=== PATIENT | female | born 1970 | race Caucasian/White ===

== ENCOUNTER 2017-11-17 21:43 | Emergency (ER) | END 2017-11-18 00:47 | disposition home or self-care (01) ==

== ENCOUNTER 2018-07-18 16:55 | Emergency (ER) | payer MEDICAID, OTHER ==
[~2018-07-18] VITALS: Wt 71.0 kg
[~2018-07-18 16:55] MED LIST: CYCL10TA7 PO; NAPR-985 PO; PRED20TA PO; TRAM50TA2 PO
[2018-07-18] MEDS ORDERED: IBUPROFEN 600 MG TAB PO ONE (21:30)
--- NOTE | 2018-07-18 22:52 | ERD ---
ER Documentation Chief Complaint Chief Complaint VAGINAL BLEEDING X 2 MONTH HPI This is a 47-year-old female patient who presents to the emergency room with complaint of bleeding heavy today with clots. Patient states that she has been having dysfunctional uterine bleeding for more than 5 months and has received several shots by her PMD to control the bleeding. Dates the shots have not really worked. She has history of anemia. She came in today because she is having pelvic cramping and increased bleeding today. Denies any other symptoms, no shortness of breath, no weakness, no fevers, no weight loss, no malaise, no unusual bruising. Patient is alert, cooperative, skin pink, NAD. Denies any chronic medical conditions. History and physical exam and plan of care discussion performed via multiple effect evaporator operator services ROS All systems reviewed and are negative except as per history of present illness. Medications Home Meds Active Scripts Ibuprofen* (Motrin*) 600 Mg Tab, 600 MG PO Q6, #30 TAB Prov:MADELYN MCDONALD [employer]PER[employer] 07/18/18 Prednisone* (Prednisone*) 20 Mg Tab, 40 MG PO DAILY for 4 Days, TAB Prov:HORTENCIA GUTHRIE-C 11/18/17 Cyclobenzaprine Hcl* (Cyclobenzaprine Hcl*) 10 Mg Tablet, 10 MG PO QHS, #7 TAB Prov:HORTENCIA GUTHRIE-C 11/18/17 Naproxen* (Naprosyn*) 500 Mg Tablet, 500 MG PO BID PRN for PAIN AND/OR INFLAMMATION, #30 TAB Prov:HORTENCIA GUTHRIE-C 11/18/17 Tramadol HCl (Tramadol HCl) 50 Mg Tablet, 50 MG PO Q6 PRN for PAIN, #20 TAB Prov:HORTENCIA GUTHRIE-C 11/18/17 Allergies Allergies: Coded Allergies: No Known Allergy (Verified Allergy, Unknown, 04/09/07) PMhx/Soc Medical and Surgical Hx: pt denies Medical Hx, pt denies Surgical Hx Hx Alcohol Use: No Hx Substance Use: No Hx Tobacco Use: No Smoking Status: Never smoker Physical Exam Vitals Vital Signs Date Temp Pulse Resp B/P (MAP) Pulse Ox O2 O2 Flow FiO2 Time Delivery Rate 07/18/18 98.7 63 18 160/92 100 Room Air 23:58 (114) 07/18/18 98.0 78 18 158/95 99 16:59 (116) Physical Exam Const: No acute distress Head: Atraumatic Eyes: Normal Conjunctiva, PERRL ENT: Normal External Ears, Nose and Mouth. Pharynx pink, no lesions, no petechiae. Neck: Full range of motion. No meningismus. Resp: Clear to auscultation bilaterally Cardio: Regular rate and rhythm, no murmurs Abd: Soft, tender at RLQ/LLQ, non distended. Normal bowel sounds Skin: No petechiae or rashes Ext: No cyanosis, or edema Neur: Awake and alert Psych: Normal Mood and Affect Result Diagram: 07/18/18212507/18/182125 Results 24 hrs Laboratory Tests Test 07/18/18 21:26 07/18/18 21:28 White Blood Count 8.2 10^3/ul Red Blood Count 3.91 10^6/ul Hemoglobin 11.2 g/dl Hematocrit 35.4 % Mean Corpuscular Volume 90.5 fl Mean Corpuscular Hemoglobin 28.6 pg Mean Corpuscular Hemoglobin Concent 31.6 g/dl Red Cell Distribution Width 13.2 % Platelet Count 345 10^3/UL Mean Platelet Volume 9.1 fl Immature Granulocytes % 0.100 % Neutrophils % 51.9 % Lymphocytes % 37.4 % Monocytes % 7.8 % Eosinophils % 1.8 % Basophils % 1.0 % Nucleated Red Blood Cells % 0.0 /100WBC Immature Granulocytes # 0.010 10^3/ul Neutrophils # 4.3 10^3/ul Lymphocytes # 3.1 10^3/ul Monocytes # 0.6 10^3/ul Eosinophils # 0.2 10^3/ul Basophils # 0.1 10^3/ul Nucleated Red Blood Cells # 0.0 10^3/ul Sodium Level 144 mmol/L Potassium Level 4.2 mmol/L Chloride Level 108 mmol/L Carbon Dioxide Level 25 mmol/L Anion Gap 11 Blood Urea Nitrogen 12 mg/dl Creatinine 0.52 mg/dl Est Glomerular Filtrat Rate mL/min > 60 mL/min Glucose Level 89 mg/dl Calcium Level 9.5 mg/dl Total Bilirubin 0.3 mg/dl Direct Bilirubin 0.00 mg/dl Indirect Bilirubin 0.3 mg/dl Aspartate Amino Transf (AST/SGOT) 29 IU/L Alanine Aminotransferase (ALT/SGPT) 21 IU/L Alkaline Phosphatase 43 IU/L Total Protein 7.0 g/dl Albumin 4.4 g/dl Globulin 2.60 g/dl Albumin/Globulin Ratio 1.69 Beta HCG, Quantitative < 2.4 mIU/ml Urine Color YELLOW Urine Clarity SLIGHTLY CLOUDY Urine pH 6.0 Urine Specific [place] 1.021 Urine Ketones NEGATIVE mg/dL Urine Nitrite NEGATIVE mg/dL Urine Bilirubin NEGATIVE mg/dL Urine Urobilinogen NEGATIVE mg/dL Urine Leukocyte Esterase NEGATIVE Dariela/ul Urine Microscopic RBC > 182 /HPF Urine Microscopic WBC 2 /HPF Urine Mucus FEW /HPF Urine Hemoglobin 3+ mg/dL Urine Glucose NEGATIVE mg/dL Urine Total Protein NEGATIVE mg/dl Current Medications Medications Dose Sig/Richy Start Time Status Last (Trade) Ordered Route PRN Stop Time Admin Dose Reason Admin Ibuprofen 600 mg ONCE ONCE 07/18/18 DC 07/18/18 (Motrin) PO 21:30 22:14 07/18/18 21:31 Procedures/MDM This is a 47-year-old female patient who presents with dysfunctional uterine bleeding that has been going on for several months. She has been followed by her primary care doctor for the same and comes in today because she states she is having heavy bleeding today and has concern for anemia. ED COURSE: The patient was stable throughout ED course. I kept the patient informed of laboratory and diagnostic imaging results throughout the ED course. DIAGNOSTIC IMAGING: No intrauterine gestation. No adnexal abnormality. MEDICATIONS GIVEN: Ibuprofen Patient tolerated medication well with no adverse reactions. Patient reported improvement in pain. MDM: Patient remained stable throughout the ER course. She will discharged home with recommendations for 2-day recheck by primary care physician. She is to return sooner for fevers, hemorrhaging, new worsening symptoms. Current signs or symptoms do not suggest appendicitis, acute surgical abdomen, additional concerning signs or symptoms or conditions. The patient was stable with no new complaints during the ER course. Clinically, there is no current evidence to suggest meningitis, sepsis, acute abdomen, pneumonia, stroke, acute coronary syndrome, pulmonary embolism, aortic dissection or any other emergent condition appearing to require further evaluation or hospitalization. Patient counseled regarding my diagnostic impression and care plan. Prior to discharge all questions answered. Pt agrees with treatment plan and understands strict return precautions. Pt is instructed to follow up with primary care provider within 24- 48 hours. Precautionary instructions provided including instructions to return to the ER if not improving or for any worsening or changing symptoms or concerns. DISPOSITION: The patient has been discharge home to follow-up with community physician. Departure Diagnosis: Primary Impression: Dysfunctional uterine bleeding Condition: Stable Patient Instructions: Dysfunctional Uterine Bleeding Referrals: REAL ESTATE PROFESSOR REFERRAL LIST Additional Instructions: Thank you very much for allowing us to participate in your care. Your health and safety is our top priority at [facility]. Call your primary care doctor TOMORROW for an appointment during the next 2-4 days and bring all the information and medications prescribed. Have prescriptions filled and follow precisely the directions on the label. If the symptoms get worse and your provider is unavailable, return to the Emergency Department immediately. MADELYN MCDONALD NP Jul 18, 2018 22:52
[2018-07-18] MEDS ORDERED: IBUP-1542 PO (23:14)
[2018-07-18 23:58] VITALS: BP 160/92; PULSE 63; RESP 18
== END 2018-07-18 23:59 | disposition home or self-care (01) ==
LOC: FTE 16:55
DX: N93.8 Other specified abnormal uterine and vaginal bleeding (principal); R10.2 Pelvic and perineal pain; Z33.1 Pregnant state, incidental
CPT/HCPCS: 36415; 76801; 76817; 80053; 81001; 84702; 85025; 86850; 86900; 86901; Z7502; Z7610

== ENCOUNTER 2018-08-28 19:12 | Emergency (ER) | payer OTHER ==
[~2018-08-28] VITALS: Wt 65.5 kg
[~2018-08-28 19:12] MED LIST changes: +IBUP-1542 PO
--- NOTE | 2018-08-28 21:01 | ERD ---
ER Documentation Chief Complaint Chief Complaint heavy irregular vag bleeding hgb 9.4 08/26 HPI This is a 47-year-old female who presents here in the emergency department with complaints of vaginal bleeding that is on and off for about 5 months and got worse today. Stated that she changed 5 pads for the last 24 hours. Stated that she is being seen by overhead line worker and was diagnosed with uterine cysts and possibly causing the blood, with possible fibroids 2. Biopsy pending biopsies was done and pending for today. Also complains of suprapubic pain. Stated that she has been taking medroxyprogesterone for bleeding, for about 10 days. Stated that the bleeding has stopped but resumed after the 10-day course. LMP: Stated that her last normal menstrual period was last April. G2, . Denies headache, head injury, loss of consciousness, dizziness, neck pain, neck stiffness, throat pain, difficulty swallowing, difficulty breathing lying flat, shoulder pain, chest pain, back pain, abdominal pain, nausea, vomiting, constipation, diarrhea, urinary symptoms, or possibility being , loss of bowel and bladder control, trauma, injury, falls, difficulty walking due to pain, numbness or tingling sensation, calf pain, recent travel, recent major surgery in the last 3 weeks, calf pain, recent long travel, recent exposure to any illness, recent antibiotic use in the last 3 months, fever, chills, seizures. Past medical history: Hypertension. Anemia. Surgical history: Social: Denies smoking, use of alcoholic beverages, use of illegal drugs. ROS All systems reviewed and are negative except as per history of present illness. Medications Home Meds Active Scripts Norethindrone-Ethinyl Estradiol (Ortho-Novum ()) 0.035-1 Mg Tablet, 1 TAB PO DAILY for 30 Days, TAB Prov:PASILABAN,KLAR F 08/28/18 Ferrous Sulfate* (Ferrous Sulfate*) 325 Mg Tabec, 325 MG PO BID, #60 TAB Prov:PASILABAN,KLAR F 08/28/18 Tramadol HCl (Tramadol HCl) 50 Mg Tablet, 50 MG PO Q4 PRN for SEVERE PAIN LEVEL 7-10, #5 TAB Prov:PASILABAN,KLAR F 08/28/18 Omeprazole* (Omeprazole*) 40 Mg Capsule.dr, 40 MG PO DAILY, #30 CAP Prov:PASILABAN,KLAR F 08/28/18 Naproxen* (Naprosyn*) 500 Mg Tablet, 500 MG PO BID PRN for PAIN AND/OR INFLAMMATION, #30 TAB Prov:LEXI BIRD 08/28/18 Ibuprofen* (Motrin*) 600 Mg Tab, 600 MG PO Q6, #30 TAB Prov:MADELYN MCDONALD MARITZA 07/18/18 Prednisone* (Prednisone*) 20 Mg Tab, 40 MG PO DAILY for 4 Days, TAB Prov:HORTENCIA GUTHRIE PA-C 11/18/17 Cyclobenzaprine Hcl* (Cyclobenzaprine Hcl*) 10 Mg Tablet, 10 MG PO QHS, #7 TAB Prov:HORTENCIA GUTHRIE PA-C 11/18/17 Naproxen* (Naprosyn*) 500 Mg Tablet, 500 MG PO BID PRN for PAIN AND/OR INFLAMMATION, #30 TAB Prov:HORTENCIA GUTHRIE PA-C 11/18/17 Tramadol HCl (Tramadol HCl) 50 Mg Tablet, 50 MG PO Q6 PRN for PAIN, #20 TAB Prov:HORTENCIA GUTHRIE PA-C 11/18/17 Allergies Allergies: Coded Allergies: No Known Allergy (Verified Allergy, Unknown, 04/09/07) PMhx/Soc Medical and Surgical Hx: pt denies Medical Hx History of Surgery: No Hx Neurological Disorder: No Hx Respiratory Disorders: No Hx Cardiac Disorders: Yes (HTN) Hx Psychiatric Problems: No Hx Miscellaneous Medical Probl: Yes (Anemia) Hx Alcohol Use: No Hx Substance Use: No Hx Tobacco Use: No Smoking Status: Never smoker Physical Exam Vitals Physical Exam Const: No acute distress Head: Atraumatic Eyes: Normal Conjunctiva ENT: Normal External Ears, Nose and Mouth. Neck: Full range of motion. No meningismus. Resp: Clear to auscultation bilaterally Cardio: Regular rate and rhythm, no murmurs Abd: Soft, non tender, non distended. Normal bowel sounds. Negative Conklin sign. Negative Jen sign (heel jar test). Negative psoas sign. Negative Rovsing sign. No CVA tenderness. Ambulatory steady gait without pain to lower abdomen. Skin: No petechiae or rashes. Color appears normal for ethnicity. Back: No midline or flank tenderness Ext: No cyanosis, or edema Neur: Awake and alert. No neurological deficits. Psych: Normal Mood and Affect Results 24 hrs Laboratory Tests Test 08/28/18 21:13 08/28/18 22:00 08/28/18 22:06 White Blood Count 7.4 10^3/ul Red Blood Count 3.60 10^6/ul Hemoglobin 10.0 g/dl Hematocrit 31.7 % Mean Corpuscular Volume 88.1 fl Mean Corpuscular Hemoglobin 27.8 pg Mean Corpuscular 31.5 g/dl Hemoglobin Concent Red Cell Distribution Width 13.6 % Platelet Count 365 10^3/UL Mean Platelet Volume 9.1 fl Immature Granulocytes % 0.400 % Neutrophils % 62.8 % Lymphocytes % 26.8 % Monocytes % 6.9 % Eosinophils % 2.3 % Basophils % 0.8 % Nucleated Red Blood Cells % 0.0 /100WBC Immature Granulocytes # 0.030 10^3/ul Neutrophils # 4.6 10^3/ul Lymphocytes # 2.0 10^3/ul Monocytes # 0.5 10^3/ul Eosinophils # 0.2 10^3/ul Basophils # 0.1 10^3/ul Nucleated Red Blood Cells # 0.0 10^3/ul Sodium Level 142 mmol/L Potassium Level 3.7 mmol/L Chloride Level 111 mmol/L Carbon Dioxide Level 23 mmol/L Anion Gap 8 Blood Urea Nitrogen 13 mg/dl Creatinine 0.56 mg/dl Est Glomerular Filtrat > 60 mL/min Rate mL/min Glucose Level 142 mg/dl Calcium Level 8.9 mg/dl Total Bilirubin 0.3 mg/dl Direct Bilirubin 0.00 mg/dl Indirect Bilirubin 0.3 mg/dl Aspartate Amino 29 IU/L Transf (AST/SGOT) Alanine 15 IU/L Aminotransferase (ALT/SGPT) Alkaline Phosphatase 50 IU/L Total Protein 7.0 g/dl Albumin 4.2 g/dl Globulin 2.80 g/dl Albumin/Globulin Ratio 1.50 Lipase 123 U/L Urine Color RED Urine Clarity TURBID Urine pH 6.0 Urine Specific [place] 1.028 Urine Ketones NEGATIVE mg/dL Urine Nitrite NEGATIVE mg/dL Urine Bilirubin NEGATIVE mg/dL Urine Urobilinogen 1+ mg/dL Urine Leukocyte Esterase NEGATIVE Dariela/ul Urine Microscopic RBC > 182 /HPF Urine Microscopic WBC 88 /HPF Urine Squamous Epithelial Cells FEW /HPF Urine Bacteria FEW /HPF Urine Mucus FEW /HPF Urine Hemoglobin 3+ mg/dL Urine Glucose 1+ mg/dL Urine Total Protein 3+ mg/dl POC Beta HCG, Qualitative NEGATIVE Procedures/MDM Diagnostic tests: POC urine : Negative. Urinalysis: Reviewed. Culture urine: Sent. Blood works: Hemoglobin is 10.0. Pelvic ultrasound: 1. Enlarged diffusely heterogeneous uterus with large anterior fundal fibroid measuring up to 7.2 cm. 2. Otherwise unremarkable pelvic ultrasound. Treatment: Naprosyn. Omeprazole. Re-evaluation: Denies abdominal pain, back pain, pelvic pain. Denies vaginal bleeding. No CVA tenderness. No abdominal tenderness. Stated that she feels much better at this time and that she is ready to go home. Differential diagnosis I have low suspicion for hemorrhaging, ovarian torsion, ovarian cyst rupture. Final diagnosis: Vaginal bleeding. Fibroids. Prescription: Naprosyn. Omeprazole. Tramadol. Follow-up with PCP in the next 24-48 hours. Follow-up with overhead line worker in the next 24 to 48 hours. Come back here in the emergency department for any new symptoms or any worsening symptoms. All questions and concerns were answered. Patient and family members verbalized understanding and agreed with plan of care. Hemodynamically stable on discharge. Departure Diagnosis: Primary Impression: Vaginal bleeding Additional Impression: Fibroids Condition: Stable Additional Instructions: Follow-up with PCP in the next 24-48 hours. Follow-up with overhead line worker in the next 24 to 48 hours. Come back here in the emergency department for any new symptoms or any worsening symptoms. LEXI BIRD August 28, 2018 21:01
[2018-08-28] MEDS ORDERED: NAPR-985 PO (22:53)
[2018-08-28] MEDS ORDERED: OMEP40CA6 PO (22:54)
[2018-08-28] MEDS ORDERED: TRAM50TA2 PO (22:55)
[2018-08-28] MEDS ORDERED: FER325 PO (22:55)
[2018-08-28] MEDS ORDERED: ORTNOV PO (23:06)
[2018-08-29 00:01] VITALS: BP 137/82; PULSE 69; RESP 16
== END 2018-08-29 00:01 | disposition home or self-care (01) ==
LOC: FTE 19:12
DX: N93.9 Abnormal uterine and vaginal bleeding, unspecified (principal); I10 Essential (primary) hypertension; D25.9 Leiomyoma of uterus, unspecified; R10.2 Pelvic and perineal pain
CPT/HCPCS: 76856; 80053; 81001; 81025; 83690; 85025; 87086; Z7502